=== PATIENT | male | born 1970 | race Caucasian/White ===

== ENCOUNTER 2016-06-03 22:01 | Inpatient (IN) | payer OTHER ==
--- NOTE | ~2016-06-03 | PN ---
Unit #: [id number] #: [id number] Patient: EMMETT HUGHES [id number] [facility] [address] [place] [address] [id number] I MR#: [id number] NAME: EMMETT HUGHES ROOM: [facility] Age: 46 Sex: M Admission Date: 06/03/2016 : 1970 Attending Physician: Zane Phillips M.D. Admitting Physician: Zane Phillips M.D. Primary Care Physician: Generic Doctor Not In System [facility] PROGRESS NOTES DATE 06/09/2016 DISCUSSION Emmett continues to be dysphoric and downcast in his affect. He reports feeling subjective withdrawal symptoms although his blood pressure and pulse are normal this morning. He is alert and fully oriented. His memory and concentration are intact. His thought processes are logical with no psychosis and no disorientation. He has vague suicidal ideas this morning and cannot contract for safety. ASSESSMENT 1. Alcohol dependence. 2. Major depression. PLAN Continue current medications and work with patient on long-term planning. Dictated by... Ilia Hernandez/ulisses TD: 06/09/2016 13:50 JOB #: [id number] [facility] PROGRESS NOTES Page 1 of 1 X Zane Phillips MD PROGRESS NOTE
--- NOTE | ~2016-06-03 | PN ---
Unit #: [id number] #: [id number] Patient: EMMETT HUGHES [id number] [facility] [address] [place] [address] [id number] MR#: [id number] NAME: EMMETT UHGHES ROOM: [facility]177 Age: 46 Sex: M Admission Date: 06/03/2016 : 1970 Attending Physician: Zane Phillips M.D. Admitting Physician: Zane Phillips M.D. Primary Care Physician: Generic Doctor Not In System [facility] PROGRESS NOTES DATE 06/11/2016 DISCUSSION Emmett continues to express mild SI today and cancelled his discharge yesterday after reporting this to the nursing staff. I explained to the patient that I felt he was very close to achieving maximum benefit from the hospitalization, and processed with him his concerns about his external situation including (1) , his relationship, etc. 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 ASSESSMENT Alcohol dependence, major depression, we will continue hospitalization at this time due to the patient's unwillingness to contract for safety, but have put him on notice that discharge is almost certainly eminent. Dictated by... Ilia Hernandez/farheen TD: 06/12/2016 13:00 JOB #: [id number] [facility] PROGRESS NOTES Page 1 of 1 X Zane Phillips MD PROGRESS NOTE
--- NOTE | ~2016-06-03 | DS ---
Unit #: [id number] #: [id number] Patient: EMMETT HUGHES [id number] [place] [address] [id number] I MR#: [id number] NAME: EMMETT HUGHES ROOM: [facility] Age: 46 Sex: M Admission Date: 06/03/2016 : 1970 Discharge Date: 06/12/2016 Attending Physician: Zane Phillips M.D. Primary Care Physician: Generic Doctor Not In System DISCHARGE SUMMARY REASON FOR ADMISSION Emmett is a 46-year-old man with no previous admissions to this facility, who came in reporting increasing depression, hopelessness, helplessness, and ongoing use of alcohol. 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 He was unable to contract for safety and was admitted for detox and treatment of depression. DIAGNOSTIC STUDIES LABORATORY RESULTS: Please see hospital chart. HOSPITAL COURSE The patient was admitted and placed on suicide precautions. Effexor XR 75 mg daily for depression was started, together with Ultram as needed for pain and his home hypertensives as Zestril and Norvasc. Trazodone was also provided for insomnia. The patient had significant detox symptomatology for the full 5 days of the detox protocol, including small residual detox symptoms after the ending of the protocol that did not require reinitiation of treatment. He tolerated Effexor XR with no significant adverse side effects and his depression improved mildly, although he remained quite anxious about the possibility of going home. On his original discharge date, he stated that he had recurrence of suicidal ideation, and was unable to contract for safety. He remained in the hospital another 48 hours while we worked with him on coping skill development, as well as making significant outpatient arrangements that provided reassurance and allowed him to discharge in safe condition. DISCHARGE DIAGNOSES AXIS I: Major depressive disorder, F33.2; alcohol dependence with withdrawal, uncomplicated, F10.230. AXIS II: No diagnosis. AXIS III: Chronic pain. AXIS IV: AXIS V: DISCHARGE INSTRUCTIONS Follow up with primary care physician and with long-term rehab facility as provided by unit social service technician. DISCHARGE MEDICATIONS Effexor XR 75 mg daily for depression. The patient was to continue on Norvasc 5 mg daily for hypertension and Zestril 20 mg daily for Unit #: [id number] #: [id number] Patient: EMMETT HUGHES hypertension from his primary care physician. CONDITION AT DISCHARGE Improved. PROGNOSIS Fair to good. DIET AND ACTIVITY Per primary care doctor. Dictated by... Ilia Hernandez/akash TD: 06/13/2016 13:29 JOB #: [id number] DISCHARGE SUMMARY Page 1 of 1 X Zane Phillips MD X DISCHARGE SUMMARY
--- NOTE | ~2016-06-03 | PN ---
Unit #: [id number] #: [id number] Patient: EMMETT HUGHES [id number] [facility] [address] [place] [address] [id number] I MR#: [id number] NAME: EMMETT HUGHES ROOM: [facility] Age: 46 Sex: M Admission Date: 06/03/2016 : 1970 Attending Physician: Zane Phillips M.D. Admitting Physician: Zane Phillips M.D. Primary Care Physician: Generic Doctor Not In System [facility] PROGRESS NOTES DATE 06/07/2016 DISCUSSION Emmett is having mild to moderate detox symptoms today and continues to be depressed and anxious. He is alert and fully oriented. His memory and concentration are fair to good and his thought processes are goal directed with no active psychosis. He is equivocal about suicidal ideation. He is participating in unit groups and activities. ASSESSMENT 1. Alcohol dependence. 2. Major depression. PLAN Continue current treatment plan. Dictated by... Ilia Hernanedz/ulisses TD: 06/09/2016 13:46 JOB #: [id number] [facility] PROGRESS NOTES Page 1 of 1 X Zane Phillips MD PROGRESS NOTE
--- NOTE | ~2016-06-03 | PN ---
Unit #: [id number] #: [id number] Patient: EMMETT HUGHES [id number] [facility] [address] [place] [address] [id number] MR#: [id number] NAME: EMMETT HUGHES ROOM: [facility] Age: 46 Sex: M Admission Date: 06/03/2016 : 1970 Attending Physician: Zane Phillips M.D. Admitting Physician: Zane Phillips M.D. Primary Care Physician: Generic Doctor Not In System [facility] PROGRESS NOTES DATE 06/10/2016 DISCUSSION I had scheduled Emmett for discharge this morning, and he appeared to be okay with this during my initial assessment, although he was slightly tremulous. He admitted to some concerns about his outpatient living situation, not having been able to get hold of his girlfriend and not sure if he is "still in my apartment" although he could give me no reason to believe that he had been evicted. Discharge arrangements were made but later today, I was contacted by nursing staff who said that the patient was now reporting suicidal ideation and could not contract for safety outside of the hospital. His discharge was therefore cancelled. ASSESSMENT 1. Alcohol dependence. 2. Major depression. PLAN We will hold discharge for the moment and make further plans with patient tomorrow. Dictated by... Zane Phillisp M.D. LACEY/kimih TD: 06/12/2016 22:42 JOB #: [id number] [facility] PROGRESS NOTES Page 1 of 1 X Zane Phillips MD X PROGRESS NOTE
--- NOTE | ~2016-06-03 | PN ---
Unit #: [id number] #: [id number] Patient: CARLOS HUGHES [id number] [facility] [address] [place] [address] [id number] I MR#: [id number] NAME: CARLOS HUGHES ROOM: [facility] Age: 46 Sex: M Admission Date: 06/03/2016 : 1970 Attending Physician: Zane Phillips M.D. Admitting Physician: Zane Phillips M.D. Primary Care Physician: Generic Doctor Not In System [facility] PROGRESS NOTES DATE 06/05/2016 DISCUSSION The patient is questioning initiation of hydrocodone. However, given his history of substance abuse, I do not feel comfortable initiating such medication. I will order Mobic 7.5 mg b.i.d. to address the patient's complaints of back pain. Dr. Phillips will reassume care of the patient tomorrow. Dictated by... Darius Donovan M.D. CB/ulisses TD: 06/05/2016 16:08 JOB #: [id number] [facility] PROGRESS NOTES Page 1 of 1 X Darius Donovan MD X PROGRESS NOTE
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
--- NOTE | ~2016-06-03 | HP ---
Unit #: [id number] #: [id number] Patient: EMMETT HUGHES [id number] [place] [address] [id number] MR#: [id number] NAME: EMMETT HUGHES ROOM: [facility] Age: 46 Sex: M Admission Date: 06/03/2016 : 1970 Attending Physician: Zane Phillips M.D. Admitting Physician: Zane Phillips M.D. Primary Care Physician: Generic Doctor Not In System HISTORY AND PHYSICAL HISTORY OF PRESENT ILLNESS Emmett is a 46 year old admitted to [facility] because of his abuse of alcohol. PAST MEDICAL HISTORY 1. Long history of alcohol abuse. 2. History of withdrawal seizures. 3. High blood pressure. 4. Osteoarthritis. 5. Coronary artery disease. a. History of [place] by patient's report. PAST SURGICAL HISTORY 1. Inguinal hernia repair 2. Bilateral shoulders 3. Bilateral knees 4. Appendectomy 5. Cholecystectomy ALLERGIES Demerol, adhesive. SOCIAL HISTORY Smokes less than one pack per day. Drinks 1/2 gallon of liquor on a daily basis and denies illicit drug use. FAMILY HISTORY Medically noncontributory. REVIEW OF SYSTEMS CONSTITUTIONAL: No fever or chills. HEENT: Denies any sore throat, ear pain or runny nose. CARDIOVASCULAR: Denies chest pain, irregular heart rhythm or palpitations. CHEST: Denies shortness of breath or cough. No hemoptysis. GASTROINTESTINAL: Denies nausea, vomiting, diarrhea or chronic constipation. ENDOCRINE: Denies history of increased thirst or urination. No recent significant weight loss or gain. GENITOURINARY: Denies dysuria, frequency, or hematuria. SKIN: Denies any rashes. HEMATOLOGIC: Denies history of increased bleeding or bruising. MUSCULOSKELETAL: Denies any hot, swollen joints. No generalized muscle Unit #: [id number] #: [id number] Patient: EMMETT HUGHES pain. NEUROLOGIC: Denies problems with vision or speech. No frequent, severe headaches. No numbness, tingling or weakness in any extremities. Denies loss of bladder or bowel control. CURRENT MEDICATIONS 1. Detox protocol 2. Effexor XR 75 mg daily 3. Ultram 50 mg q 6 hours p.r.n. 4. Zestril 20 mg q day 5. Norvasc 5 mg q day 6. Nicotine patch 14 mg q day PHYSICAL EXAMINATION GENERAL: Alert, well-nourished, in no apparent distress. VITAL SIGNS: Blood pressure 126/88, heart rate 90, respirations 16, temperature 98.6. WEIGHT: 180 pounds. HEIGHT: 6'4". SKIN: Warm and dry without rash or lesion. HEENT: Normocephalic. TMs not viewed. Oral and nasal passages clear. Conjunctivae clear. Pupils equal, round and reactive to light and accommodation. Extraocular movements intact. NECK: Supple without lymphadenopathy or thyromegaly. HEART: Regular rate and rhythm without murmur. LUNGS: Clear. ABDOMEN: Soft, nontender. : Not done. EXTREMITIES: No evidence of cyanosis, clubbing or edema. Moves all extremities without focal deficit. NEUROLOGICAL: Grossly within normal limits. Cranial Nerves: II: Visual peters are intact. III, IV AND : Extraocular movements are intact. Pupils are equal, round and reactive to light. V: Facial sensation is grossly normal. VII: Facial movements and expression are normal. VIII: Auditory acuity grossly intact. IX, X: Uvula is midline. Phonation is normal. XI: Patient shrugs shoulders and turns head normally. XII: Tongue protrudes in the midline. Sensory and Motor Function: Sensory and motor sensation is grossly normal. Motor: moves all extremities well. Coordination: Gait is normal. Deep Tendon Reflexes: Intact. IMPRESSION Psychiatric admission RECOMMENDATIONS PSYCHIATRIC: Per psychiatrist. MEDICAL: I see no contraindications to participating in facility's activities. MEDICAL PROGNOSIS Good. MEDICAL CONDITION Stable. Unit #: [id number] #: [id number] Patient: EMMETT HUGHES Dictated by... Sharlene Gomes P.A.-C. for Ilia Nails/rosalba TD: 06/04/2016 22:29 JOB #: [id number] HISTORY AND PHYSICAL Page 1 of 1 X Sharlene Gomes HISTORY AND PHYSICAL
== END 2016-06-12 15:15 | disposition home or self-care (01) | DRG 897 ==
LOC: P1E 22:01
PROC: HZ2ZZZZ Detoxification Services for Substance Abuse Treatment (ICD-10-PCS; principal; 2016-06-03)
DX: F10.239 Alcohol dependence with withdrawal, unspecified (principal); R45.851 Suicidal ideations; F33.9 Major depressive disorder, recurrent, unspecified; G89.29 Other chronic pain; I10 Essential (primary) hypertension; I25.10 Atherosclerotic heart disease of native coronary artery without angina pectoris; M19.90 Unspecified osteoarthritis, unspecified site; Z88.5 Allergy status to narcotic agent
CPT/HCPCS: 86592